=== PATIENT | female | born 1965 | race Caucasian/White ===

== ENCOUNTER 2022-06-11 12:36 | Emergency (ER) | payer MEDICAID, OTHER ==
[~2022-06-11] VITALS: Ht 157.5 cm; Wt 90.9 kg
[2022-06-11] MEDS ORDERED: FOLI0.4T14 PO (12:47)
[2022-06-11] MEDS ORDERED: HYDR200T38 PO (12:47)
[2022-06-11] MEDS ORDERED: AMLO10TA55 PO (12:47)
[2022-06-11] MEDS ORDERED: PRED5TAB2 PO (12:47)
[2022-06-11] MEDS ORDERED: METH-659 PO (12:47)
[2022-06-11] MEDS ORDERED: METH2.5T47 PO (12:47)
[2022-06-11] MEDS ORDERED: BACLOFEN 10 MG TABLET PO ONE (14:15)
[2022-06-11] MEDS ORDERED: KETOROLAC TROMETHAMINE 60 MG/2 ML VIAL IM ONE (14:15)
[2022-06-11] MEDS ORDERED: ACETAMINOPHEN/CODEINE 300-30 MG TABLET PO ONE (14:15)
[2022-06-11] MEDS ORDERED: ADAL40PE5 SQ (14:22)
[2022-06-11] MEDS ORDERED: TRIA15CR49 TP (14:22)
[2022-06-11] MEDS ORDERED: FOLI-130 PO (14:22)
[2022-06-11] MEDS ORDERED: LISI10TA24 PO (14:22)
[2022-06-11] MEDS ORDERED: OMEP20CA12 PO (14:22)
[2022-06-11] MEDS ORDERED: TIZA-211 PO (14:22)
[2022-06-11 15:11] LABS: BASOPHILS % (AUTO) 0.4 % (0.0-2.0); EOSINOPHILS % (AUTO) 1.4 % (1.0-6.0); HEMATOCRIT 38.7 % (36-46); HEMOGLOBIN 12.7 g/dL (12.0-16.0); LYMPHOCYTES % (AUTO) 25.4 % (22.0-44.0); MEAN CORPUSCULAR HEMOGLOBIN 35.1 pg (26.0-34.0); MEAN CORPUSCULAR VOLUME 106 fL (80-100); MONOCYTES # (AUTO) 0.8 K/uL (0.1-1.0); NEUTROPHILS % (AUTO) 62.8 % (40.0-70.0); PLATELET COUNT (AUTO) 208 K/uL (150-450); RED BLOOD CELL COUNT(AUTO) 3.63 MIL/uL (4.00-5.20); RED CELL DISTRIBUTION WIDTH 14.1 % (11.5-14.5)
[2022-06-11 15:19] LABS: ANION GAP 9 mmol/L (8-16); CALCIUM, TOTAL 8.9 mg/dL (8.8-10.5); CARBON DIOXIDE 26 mmol/L (22-29); CHLORIDE 107 mmol/L (98-107); CREATININE 0.87 mg/dL (0.60-1.30); GLOMERULAR FILTR. RATE CALC > 60 mL/min (>60); GLUCOSE,RANDOM 95 mg/dL (70-110); SODIUM SERUM 142 mmol/L (136-145); UREA NITROGEN, BLOOD 22 mg/dL (7-18)
[2022-06-11 15:25] LABS: ALANINE AMINOTRANSFERASE 35 U/L (12-78); ALBUMIN 3.8 g/dL (3.4-5.0); ALKALINE PHOSPHATASE 84 U/L (46-116); ASPARTATE AMINOTRANSFERASE 25 U/L (15-37); BILIRUBIN,TOTAL 0.8 mg/dL (0.1-1.0); PROTHROMBIN TIME 10.9 SEC (9.4-11.6); TOTAL PROTEIN, SERUM 7.4 g/dL (6.4-8.2)
[2022-06-11] MEDS ORDERED: ACET-2080 PO (16:56)
[2022-06-11 17:01] VITALS: BP 139/88
== END 2022-06-11 18:28 | disposition home or self-care (01) ==
LOC: EMS 12:39
DX: S42.211A Unspecified displaced fracture of surgical neck of right humerus, initial encounter for closed fracture (principal); S70.01XA Contusion of right hip, initial encounter; S93.402A Sprain of unspecified ligament of left ankle, initial encounter; I10 Essential (primary) hypertension; X58.XXXA Exposure to other specified factors, initial encounter; Y93.89 Activity, other specified; Y92.89 Other specified places as the place of occurrence of the external cause; Y99.8 Other external cause status
CPT/HCPCS: 99285; 71045; 80053; 85025; 85610; 85730; 36415; 73030; 73502; 96372; J1885